=== PATIENT | male | born 1990 ===

== ENCOUNTER 2017-12-30 09:50 | Emergency (ER) | payer BC ==
--- NOTE | 2017-12-30 10:13 | UC ---
Throat Pain/Nasal Benny HPI - HPI Summary HPI Summary: Patient is a 27-year-old male with a day history of sore throat fever chills and myalgias. He had 2 episodes of strep this year. He said any nausea or vomiting. - History of Current Complaint Chief Complaint: UCGeneralIllness Stated Complaint: THROAT PAIN Time Seen by Provider: 12/30/17 10:03 Hx Obtained From: Patient Onset/Duration: Gradual Onset, Lasting Hours Severity: Severe Pain Intensity: 8 Pain Scale Used: 0-10 Numeric Cough: None Associated Signs & Symptoms: Positive: Fever - Epiglottits Risk Factors Epiglottis Risk Factors: Negative - Allergies/Home Medications Allergies/Adverse Reactions: Allergies Allergy/AdvReac Type Severity Reaction Status Date / Time No Known Allergies Allergy Verified 12/30/17 10:04 PMH/Surg Hx/FS Hx/Imm Hx Previously Healthy: Yes - Surgical History Surgical History: None - Family History Known Family History: Positive: Hypertension - Social History Alcohol Use: Occasionally Substance Use Type: None Smoking Status (MU): Never Smoked Tobacco Review of Systems Constitutional: Fever Skin: Negative Eyes: Negative ENT: Sore Throat Respiratory: Negative Cardiovascular: Negative Gastrointestinal: Negative Genitourinary: Negative Motor: Negative Neurovascular: Negative Musculoskeletal: Negative Neurological: Negative Psychological: Negative Is Patient Immunocompromised?: No All Other Systems Reviewed And Are Negative: Yes Physical Exam Triage Information Reviewed: Yes Appearance: Well-Appearing, No Pain Distress, Well-Nourished Vital Signs: Initial Vital Signs Temp 98.2 F 12/30/17 10:01 Pulse 109 12/30/17 10:01 Resp 18 12/30/17 10:01 BP 109/76 12/30/17 10:01 Pulse Ox 100 12/30/17 10:01 Vital Signs Reviewed: Yes Eyes: Positive: Conjunctiva Clear ENT: Positive: Pharyngeal erythema, Tonsillar swelling, Tonsillar exudate, Uvula midline. Negative: Nasal drainage, TMs normal, Trismus, Muffled voice, Hoarse voice Neck: Positive: Supple, Nontender, Enlarged Nodes @ - ant cervical Respiratory: Positive: Lungs clear, Normal breath sounds, No respiratory distress Cardiovascular: Positive: RRR, No Murmur, Tachycardia Musculoskeletal: Positive: ROM Intact, No Edema Neurological: Positive: Alert Psychological Exam: Normal Skin Exam: Normal Diagnostics - Laboratory Diagnostic Studies Completed/Ordered: strep + Throat Pain/Nasal Course/Dx - Differential Dx/Diagnosis Provider Diagnoses: strep throat Discharge - Sign-Out/Discharge Documenting (check all that apply): Discharge/Admit/Transfer - Discharge Plan Condition: Stable Disposition: HOME Prescriptions: Cephalexin CAP* [Keflex CAP*] 500 mg PO BID #20 cap methylPREDNISolone [Medrol Dosepak 4 MG*] 0 mg PO .SEE TRISTEN INSTRUCTION #1 tab Referrals: No Primary Care Phys,NOPCP [Primary Care Provider] - Additional Instructions: recheck in 3-4 days if not better - Billing Disposition and Condition Condition: STABLE Disposition: Home
== END 2017-12-30 10:46 | disposition home or self-care (01) ==
LOC: UCEAST 09:50
DX: J02.0 Streptococcal pharyngitis (principal)
CPT/HCPCS: 87651; 99202; G0463